=== PATIENT | female | born 1990 | race Caucasian/White ===

== ENCOUNTER 2020-07-17 11:33 | Emergency (ER) | payer MEDICAID ==
[~2020-07-17] VITALS: Ht 162.6 cm; Wt 59.9 kg
--- NOTE | 2020-07-17 11:40 | NUR ---
irrigatred the right index finger with ns.
--- NOTE | 2020-07-17 12:10 | NUR ---
cristi provided translation over the phone, while er md at bedside. plan of care explained to the pt.
--- NOTE | 2020-07-17 12:16 | NUR ---
pt mother at bedide, speaking [place].
[2020-07-17] MEDS ORDERED: LIDOCAINE HCL 2% 20 ML VIAL TP ONE (12:30)
[2020-07-17] MEDS ORDERED: TDAP DIPH,PERTUSS,TET VAC/PF 0.5 ML DISP.SYRIN IM ONE ×2 (12:30→12:31)
[2020-07-17] MEDS ORDERED: LIDOCAINE HCL 2% 20 ML VIAL ONE (12:31)
--- NOTE | 2020-07-17 12:32 | NUR ---
all the requested materials a t bedside. pt and mother requesting to wait until they are clear with insurance situation.
--- NOTE | 2020-07-17 15:19 | NUR ---
Patient discharged to home in stable condition. Written and verbal after care instructions given. Patient verbalizes understanding of instructions. Stressed follow up or return to ER for worsening s/s.
== END 2020-07-17 15:20 | disposition home or self-care (01) ==
LOC: ER 11:33
DX: S61.310A Laceration without foreign body of right index finger with damage to nail, initial encounter (principal); W29.0XXA Contact with powered kitchen appliance, initial encounter; Y92.89 Other specified places as the place of occurrence of the external cause
CPT/HCPCS: 11760; 73140; 90471; 90715; 99284; J3490; A4217

== ENCOUNTER 2020-07-20 13:35 | Emergency (ER) | payer MEDICAID ==
[~2020-07-20] VITALS: Ht 162.6 cm; Wt 59.9 kg
--- NOTE | 2020-07-20 14:03 | NUR ---
Dr Yu at the bedside for MSE.
--- NOTE | 2020-07-20 14:28 | NUR ---
Applied dressing to suture site per Md order.
[2020-07-20 14:29] VITALS: BP 124/84
== END 2020-07-20 14:30 | disposition home or self-care (01) ==
LOC: ER 13:35
DX: S61.310D Laceration without foreign body of right index finger with damage to nail, subsequent encounter (principal); W29.0XXD Contact with powered kitchen appliance, subsequent encounter
CPT/HCPCS: A4663